=== PATIENT | female | born 1950 | race Caucasian/White ===

== ENCOUNTER → 2016-12-02 | Outpatient (CLI) | payer MEDICARE, MEDICAID ==
--- NOTE | 2016-12-02 11:05 | RADIOLOGY REPORT (SQ) ---
EXAM DESCRIPTION: KUB/ABDOMEN (SINGLE VIEW) COMPLETED DATE/TIME: 12/02/2016 10:06 am REASON FOR STUDY: ORIENTATION OF IMPLANT FOR MRI CLEARANCE M48.07 SPINAL STENOSIS, LUMBOSACRAL ABHISHEK ON COMPARISON: None. NUMBER OF VIEWS: One view. TECHNIQUE: Supine radiographic image of the abdomen acquired. LIMITATIONS: None. FINDINGS: BOWEL GAS PATTERN: Normal bowel gas pattern. No dilated loops. CALCIFICATIONS: No suspicious calcifications. SOFT TISSUES: No gross mass or suggestion of organomegaly. HARDWARE: Patient has an MRI compatible baclofen pump over the right lower quadrant. Patient has old bone growth stimulator leads along the transverse processes at L4 and L5 without a bone growth stimu lator battery pack. BONES: Lower lumbar multilevel laminectomy. OTHER: No other significant finding. IMPRESSION: NO RADIOGRAPHIC EVIDENCE FOR ACUTE ABDOMINAL DISEASE. TECHNICAL DOCUMENTATION: JOB ID: [id number] [employer]- All Rights Reserved
--- NOTE | 2016-12-02 12:11 | RADIOLOGY REPORT (SQ) ---
EXAM DESCRIPTION: MRI LUMBAR SPINE WITHOUT COMPLETED DATE/TIME: 12/02/2016 11:45 am REASON FOR STUDY: SPINAL STENOSIS, LUMBOSACRAL REGION M48.07 SPINAL STENOSIS, LUMBOSACRAL REGION COMPARISON: None. TECHNIQUE: Sagittal and Axial imaging includes T1, T2, STIR and gradient echo sequences. Coronal T2/ HASTE imaging. LIMITATIONS: None. FINDINGS: VISUALIZED UPPER ABDOMEN: Limited evaluation. No acute or suspicious findings suggested. SEGMENTATION: No transitional anatomy. The lowest well-developed disc space is labeled L5-S1. ALIGNMENT: Grade 1 anterolisthesis of L4 over L5 VERTEBRAE: Intact. BONE MARROW: Normal. No marrow replacement or reactive changes. DISC SIGNAL: Decreased T2 weighted intervertebral disc signal from L2-3 through L5-S1. Disc space lo ss of height at L4-5 and L3-4. POSTERIOR ELEMENTS: Post bilateral laminectomies at L3 and L4 HARDWARE: None in the spine. CORD AND CONUS: Normal in size and signal intensity. Conus at the L1-2 level. SOFT TISSUES: No aortic aneurysm seen. No bulky retroperitoneal adenopathy or mass. No paraspinal mas s or fluid. L1-L2: No significant spinal stenosis or exit foraminal stenosis. Mild bilateral facet hypertrophy i s present. L2-L3: Mild central canal stenosis results from broad diffuse posterior disc bulge and bony spurring and moderate bilateral facet and ligament hypertrophy. There is flattening of the thecal sac into a triangular shape on axial T2 image 11. Mild bilateral inferior foraminal narrowing is present withou t exiting L2 nerve root impingement. L3-L4: There is a small midline laminectomy defect at L3. Broad diffuse posterior disc bulging and m oderate bilateral facet hypertrophy right greater than left combine to cause mild central canal steno sis. There is flattening of the thecal sac into a triangular shape on axial T2 image 16. Mild bilat eral inferior foraminal narrowing is present without exiting L3 nerve root impingement. L4-L5: Mild grade 1 anterolisthesis of L4 over L5 is present. Old bilateral laminectomy with asymmet tanisha bulky bony spurring on the right residua of the facet joint. Central canal decompressed. Mild b ilateral foraminal narrowing is present without definite exiting L4 nerve root impingement. L5-S1: Bulky facet arthropathy right greater than left. No central or foraminal encroachment. LOWER THORACIC: Bilateral facet arthropathy causing very mild bilateral foraminal narrowing at the up per edge of the field of view at T9-10, T10-11, T11-12, and T12-L1. SACRUM: Visualized upper sacrum intact. OTHER: On the axial T2 images through the lumbar spine, there is no clumping of nerve roots worrisome for arachnoiditis IMPRESSION: Old postsurgical changes with diffuse facet arthropathy. There is multilevel foraminal narrowing without high-grade foraminal stenosis or exit nerve root impingement TECHNICAL DOCUMENTATION: JOB ID: [id number] [employer]- All Rights Reserved
--- NOTE | 2016-12-02 13:36 | RADIOLOGY REPORT (SQ) ---
EXAM DESCRIPTION: SKULL 1-3 VIEWS COMPLETED DATE/TIME: 12/02/2016 10:28 am REASON FOR STUDY: CLEARENCE PRIOR TO MRI M48.07 SPINAL STENOSIS, LUMBOSACRAL REGION COMPARISON: None. NUMBER OF VIEWS: Two-views TECHNIQUE: Images of the calvarium and facial bones acquired. LIMITATIONS: None. FINDINGS: ORBITS: No fracture. No foreign body. SINUSES: No mucosal thickening. No air fluid levels. FACIAL BONES: No fracture. OTHER: Calvarium intact. No intracranial metallic hardware. No plain film evidence of craniotomy. IMPRESSION: No radiopaque foreign body over the orbits or intracranially TECHNICAL DOCUMENTATION: JOB ID: [id number] [employer]- All Rights Reserved
== END ==
LOC: RAD 09:43
PROVIDERS: ATTEND Pain Medicine Interventional Pain Medicine
DX: M48.07 Spinal stenosis, lumbosacral region (principal)
CPT/HCPCS: 70250; 72148; 74000